=== PATIENT | male | born 1990 | race Caucasian/White ===

== ENCOUNTER 2016-12-24 21:45 | Emergency (ER) | payer OTHER ==
[2016-12-24] MEDS ORDERED: ONDANSETRON 4 MG/2 ML VIAL IVP ONE ×2 (22:12→23:46)
[2016-12-24] MEDS ORDERED: NS 1,000 ML IV ONE ×2 (22:12)
[2016-12-24 22:22] LABS: % IMMATURE GRANULYOCYTES 0.4 % (0.0-1.1); ABSOLUTE IMMATURE GRANULOCYTES 0.06 10^3/uL (0.00-0.10); ADD DIFF? NO; ADD MORPH? NO; ADD SCAN? NO; ATYPICAL LYMPHOCYTE FLAG 10 (0-99); FRAGMENT RBC FLAG 0 (0-99); HEMATOCRIT 48.7 % (40.0-51.0); HEMOGLOBIN 17.6 g/dL (13.7-17.5); LEFT SHIFT FLG 0 (0-99); LIPEMIA HEMOLYSIS FLAG 90 (0-99); MEAN CELL HEMOGLOBIN 30.1 pg (27.9-34.1); MEAN CELL HEMOGLOBIN CONCENTR. 36.1 g/dL (32.4-36.7); MEAN CELL VOLUME 83.4 fL (81.5-99.8); MEAN PLATELET VOLUME 10.9 fL (8.7-11.7); PLATELET CLUMPS FLAG 0 (0-99); PLATELET COUNT 236 10^3/uL (150-400); RED BLOOD CELL COUNT 5.84 10^6/uL (4.40-6.38); RED CELL DISTRIBUTION WIDTH 12.5 % (11.5-15.2)
[2016-12-24 22:35] LABS: ANION GAP 17 mEq/L (8-16); CARBON DIOXIDE 22 mEq/l (22-31); CHLORIDE 103 mEq/L (97-110); CREATININE 0.9 mg/dL (0.7-1.3); GLOMERULAR FILTRATION RATE > 60; GLUCOSE 134 mg/dL (70-100); SODIUM 142 mEq/L (134-144)
--- NOTE | 2016-12-24 22:37 | EDPHY ---
HPI/HX/ROS/PE/MDM Narrative: CHIEF COMPLAINT: Vomiting and diarrhea HPI: The patient is a 26-year-old male with no significant past medical history. He has been in his usual state of health until approximately 4:00 p.m. today. At that point he developed severe vomiting and diarrhea, both nonbloody. He denies fever. He denies abdominal pain. He denies recent antibiotic use, out of the country travel, sick contacts or unusual foods. He was unable to hold down fluids at home. REVIEW OF SYSTEMS: Aside from elements discussed in the HPI, a comprehensive 10-point review of systems was reviewed and is negative. PMH: None significant. SOCIAL HISTORY: Single. Denies drug abuse. PHYSICAL EXAM: General:Patient is alert, in no acute distress. ENT:Eyes are normal to inspection. ENT inspection normal. Neck: Normal inspection. Full range of motion. Respiratory:No respiratory distress. Breath sounds normal bilaterally. Cardiovascular: Regular rate and rhythm. Strong peripheral pulses. Normal cap refill. Abdomen:The abdomen is nontender to palpation. There are no peritoneal signs. There are normal bowel sounds. Back: Normal to inspection. No tenderness to palpation. Skin: Normal color. No rash. Warm and dry. Extremities: Normal appearance. Full range of motion. Neuro: Oriented x3. Normal motor function. Normal sensory function. ED Course: The patient was treated with IV fluid and Zofran. This initially improved his symptoms considerably and he was eating ice chips without difficulty. Then become somewhat more nauseated and did have an episode of watery diarrhea. His report. On re-evaluation at 12:30 a.m., continues to have no abdominal pain and his abdomen is benign. Given the fact that there are multiple patients in the ER of similar age who seem to have a viral gastroenteritis, I think this is the most likely etiology. I have low suspicion for appendicitis or bacterial infection. I have signed the patient out to Dr. Villareal at 1:00 a.m. pending re -evaluation after additional medication. The patient is afebrile with normal vital signs. He does have an elevated white blood count but I do not think imaging is indicated at this point. - Data Points Laboratory Results: Laboratory Results 12/24/16 22:10 12/24/16 22:10 12/24/16 22:10 WBC 16.52 H 10^3/uL (3.80-9.50) RBC 5.84 10^6/uL (4.40-6.38) Hgb 17.6 H g/dL (13.7-17.5) Hct 48.7 % (40.0-51.0) MCV 83.4 fL (81.5-99.8) MCH 30.1 pg (27.9-34.1) MCHC 36.1 g/dL (32.4-36.7) RDW 12.5 % (11.5-15.2) Plt Count 236 10^3/uL (150-400) MPV 10.9 fL (8.7-11.7) Neut % (Auto) 83.7 H % (39.3-74.2) Lymph % (Auto) 7.7 L % (15.0-45.0) [place] % (Auto) 7.4 % (4.5-13.0) Eos % (Auto) 0.5 L % (0.6-7.6) Baso % (Auto) 0.3 % (0.3-1.7) Nucleat RBC Rel Count 0.0 % (0.0-0.2) Absolute Neuts (auto) 13.83 H 10^3/uL (1.70-6.50) Absolute Lymphs (auto) 1.27 10^3/uL (1.00-3.00) Absolute Monos (auto) 1.23 H 10^3/uL (0.30-0.80) Absolute Eos (auto) 0.08 10^3/uL (0.03-0.40) Absolute Basos (auto) 0.05 10^3/uL (0.02-0.10) Absolute Nucleated RBC 0.00 10^3/uL (0-0.01) Immature Gran % 0.4 % (0.0-1.1) Immature Gran # 0.06 10^3/uL (0.00-0.10) Sodium 142 mEq/L (134-144) Potassium 4.0 mEq/L (3.5-5.2) Chloride 103 mEq/L (97-110) Carbon Dioxide 22 mEq/l (22-31) Anion Gap 17 mEq/L (8-16) BUN 18 mg/dL (7-23) Creatinine 0.9 mg/dL (0.7-1.3) Estimated GFR > 60 Glucose 134 H mg/dL (70-100) Calcium 10.0 mg/dL (8.5-10.4) Medications Given: Discontinued Medications Sodium Chloride (Ns) 1,000 mls @ 0 mls/hr IV ONCE ONE PRN Reason: Wide Open Stop: 12/24/16 22:13 Last Admin: 12/24/16 22:15 Dose: 1,000 mls Sodium Chloride (Ns) 1,000 mls @ 0 mls/hr IV ONCE ONE PRN Reason: Wide Open Stop: 12/24/16 22:13 Last Admin: 12/24/16 22:15 Dose: 1,000 mls Loperamide HCl (Imodium) 4 mg PO EDNOW ONE Stop: 12/25/16 00:23 Last Admin: 12/25/16 00:34 Dose: 4 mg Ondansetron HCl (Zofran) 4 mg IVP EDNOW ONE Stop: 12/24/16 22:13 Last Admin: 12/24/16 22:15 Dose: 4 mg Ondansetron HCl (Zofran) 4 mg IVP EDNOW ONE Stop: 12/24/16 23:47 Last Admin: 12/25/16 00:00 Dose: 4 mg General Time Seen by Provider: 12/24/16 22:12 Initial Vital Signs: Initial Vital Signs Temperature (C) 36.3 C 12/24/16 22:13 Heart Rate 81 12/24/16 22:13 Respiratory Rate 20 12/24/16 22:13 Blood Pressure 126/76 H 12/24/16 22:13 O2 Sat (%) 97 12/24/16 22:13 O2 Delivery Mode Room Air Allergies/Adverse Reactions: No Known Allergies Allergy (Unverified 12/24/16 22:16) Home Medications: Medication Instructions Recorded Ondansetron Odt [Zofran Odt] 4 mg PO Q4PRN PRN #8 tab 12/25/16 Departure - Departure Clinical Impression: Gastroenteritis Condition: Good Instructions: Gastroenteritis (ED) Additional Instructions: Follow-up with your primary doctor within 72 hours. Return to the Emergency Department for worsening pain, fever, severe vomiting, change in character or severity of pain or other worsening of condition.
[2016-12-24 23:42] VITALS: RESP 16
[2016-12-25] MEDS ORDERED: LOPERAMIDE HCL 2 MG CAP PO ONE (00:22)
[2016-12-25] MEDS ORDERED: NS 1,000 ML IV ONE (00:23)
[2016-12-25 01:51] VITALS: TEMP 98.2
[2016-12-25] MEDS ORDERED: ONDANSETRON 4MG PREPACK#2 BTL TAKEHOME ONE ×2 (02:15→02:16)
[2016-12-25 02:28] VITALS: BP 126/70; PULSE 67; O2SAT 96
== END 2016-12-25 02:26 | disposition home or self-care (01) ==
DX: K52.9 Noninfective gastroenteritis and colitis, unspecified (principal)
CPT/HCPCS: 96374; J2405